=== PATIENT | male | born 1945 | race Caucasian/White ===

== ENCOUNTER → 2017-04-06 | Outpatient (REF) | LOC: ZLAB.WCH 09:36 | DX: Z01.89 Encounter for other specified special examinations (principal) ==

== ENCOUNTER 2017-07-14 06:29 | Day surgery (SDC) | payer MEDICARE, BC ==
[~2017-07-14] VITALS: Ht 172.7 cm; Wt 82.8 kg
[2017-07-14] VITALS (8 sets, daily range): BP systolic 108–142; BP diastolic 50–79; PULSE 71–88; TEMP 97.2–98.2
[2017-07-14] MEDS ORDERED: GLUCOPHAGE1000 MG PO (07:16)
[2017-07-14] MEDS ORDERED: PRINIVIL10 MG PO (07:18)
[2017-07-14] MEDS ORDERED: GLUCOTROL XL2.5 MG PO (07:19)
[2017-07-14] MEDS ORDERED: ZOCOR 40MG40 MG PO (07:20)
[2017-07-14] MEDS ORDERED: FLONASE NASAL S16 GM NS (07:21)
[2017-07-14] MEDS ORDERED: MULTI VITAMINS1 TAB PO (07:22)
[2017-07-14] MEDS ORDERED: ASPIRIN 32325 MG/TAB PO (07:23)
== END 2017-07-14 14:05 | disposition home or self-care (01) ==
LOC: SDCO 06:29
DX: K40.90 Unilateral inguinal hernia, without obstruction or gangrene, not specified as recurrent (principal); E11.9 Type 2 diabetes mellitus without complications; I10 Essential (primary) hypertension; Z96.659 Presence of unspecified artificial knee joint; Z79.84 Long term (current) use of oral hypoglycemic drugs; Z82.49 Family history of ischemic heart disease and other diseases of the circulatory system; Z83.3 Family history of diabetes mellitus
CPT/HCPCS: A4315; C1781; J1100; J1885; J2405; J2704; J3010; J7030

== ENCOUNTER → 2018-03-24 | Outpatient (REF) ==
[~2018-03-24] MED LIST: ASPIRIN 32325 MG/TAB PO; FLONASE NASAL S16 GM NS; GLUCOPHAGE1000 MG PO; GLUCOTROL XL2.5 MG PO; MULTI VITAMINS1 TAB PO; PRINIVIL10 MG PO; ZOCOR 40MG40 MG PO
[2018-03-24 16:11] LABS: PSA-TOTAL 4.42 ng/mL (0-4)
[2018-03-24 16:30] LABS: THYROID STIMULATING HORMONE 2.57 uIU/mL (0.465-4.680)
== END ==
LOC: ZLAB.WCH 15:17
PROVIDERS: Internal Medicine
DX: Z01.89 Encounter for other specified special examinations (principal)
CPT/HCPCS: G0103

== ENCOUNTER → 2018-06-08 | Outpatient (REF) | LOC: ZLAB.WCH 18:31 | DX: Z01.89 Encounter for other specified special examinations (principal) | CPT/HCPCS: G0103 ==